=== PATIENT | male | born 1975 | race Caucasian/White ===

== ENCOUNTER 2017-02-18 22:03 | Inpatient (IN) | payer OTHER ==
[~2017-02-18] VITALS: Ht 185.4 cm; Wt 75.8 kg
[2017-02-18 22:32] VITALS: BP 139/91; PULSE 96; TEMP 97.8
[2017-02-19] VITALS (11 sets, daily range): BP systolic 107–148; BP diastolic 55–90; PULSE 78–109; TEMP 98–99
[2017-02-19 04:11] LABS: PH 6 (5-8); SQUAMOUS EPITHELIAL 0-2 /hpf; URINE APPEARANCE Clear; URINE BACTERIA None Seen /hpf; URINE BILIRUBIN Negative (NEGATIVE); URINE BLOOD 1+ (NEGATIVE); URINE COLOR Amber; URINE GLUCOSE Negative (NEGATIVE); URINE KETONE 1+ (NEGATIVE); URINE RBC 0-2 /hpf; URINE UROBILINOGEN >=4.0 mg/dL (NEGATIVE); URINE WBC 0-2 /hpf
[2017-02-19 06:29] LABS: MEAN CORPUSCULAR HGB CONC 37 g/dl (33.0-37.0)
[2017-02-19 06:40] LABS: CALCIUM 7.1 mg/dL (8.4-10.2); CREATININE, serum 0.64 mg/dL (0.66-1.25); MAGNESIUM 1.2 mg/dL (1.6-2.3); PHOSPHOROUS 3.3 mg/dL (2.5-4.5); POTASSIUM 3.2 mmol/L (3.4-5.0)
[2017-02-19 07:07] LABS: THYROID STIMULATING HORMONE 0.737 uIU/mL (0.465-4.680)
[2017-02-19 08:45] LABS: ADJUSTED CALCIUM 7.7 mg/dL (8.4-10.2); ALBUMIN 3.4 gm/dL (3.5-5.0); CALCIUM 7.2 mg/dL (8.4-10.2); CREATININE, serum 0.65 mg/dL (0.66-1.25); POTASSIUM 3.3 mmol/L (3.4-5.0); TOTAL PROTEIN 6.1 gm/dL (6.4-8.2)
[2017-02-19 09:12] LABS: INR 1.1 (0.8-3.0); PROTHROMBIN TIME 12.5 SECONDS (9.7-12.8)
[2017-02-19 09:20] LABS: MEAN CELL VOLUME 100 fl (80.0-100.0); MEAN CORPUSCULAR HEMOGLOBIN 37 pg (27.0-31.0); MEAN PLATELET VOLUME 9.5 fl (7.4-10.4); RED BLOOD COUNT 3.28 M/mm3 (4.20-5.60); REDCELL DISTRIBUTION WIDTH-CV 14.2 % (11.5-14.5); WHITE BLOOD COUNT 3.8 K/mm3 (4.8-10.8)
[2017-02-19 09:21] LABS: HEMATOCRIT 32.8 % (42.0-52.0)
[2017-02-19 09:22] LABS: PLATELET COUNT 28 K/mm3 (130-400)
[2017-02-20] VITALS (12 sets, daily range): BP systolic 117–139; BP diastolic 79–94; PULSE 95–118; TEMP 97.9–98.6
[2017-02-20 07:40] LABS: BASO % 0.6 % (0.0-2.0); EOS % 0.6 % (0-4.0); GRAN # 3.1 (1.4-6.5); GRAN % 67.3 % (42.2-75.2); HEMOGLOBIN 12.3 g/dl (13.5-18.0); LYMPH # 0.8 (1.2-3.4); MEAN CELL VOLUME 98 fl (80.0-100.0); MEAN CORPUSCULAR HEMOGLOBIN 37 pg (27.0-31.0); MEAN CORPUSCULAR HGB CONC 37 g/dl (33.0-37.0); MEAN PLATELET VOLUME 9.4 fl (7.4-10.4); MONO # 0.6 (0.1-0.6); MONO % 12.6 % (1.7-9.3); RED BLOOD COUNT 3.37 M/mm3 (4.20-5.60); WHITE BLOOD COUNT 4.7 K/mm3 (4.8-10.8)
[2017-02-20 07:55] LABS: HEMATOCRIT 33.1 % (42.0-52.0)
[2017-02-20 07:59] LABS: PLATELET COUNT 36 K/mm3 (130-400)
[2017-02-20 08:11] LABS: ALBUMIN 3.9 gm/dL (3.5-5.0); BILIRUBIN,TOTAL 6.5 mg/dL (0.0-1.0); TOTAL PROTEIN 6.6 gm/dL (6.4-8.2)
[2017-02-20 12:27] LABS: CALCIUM 7.5 mg/dL (8.4-10.2); CREATININE, serum 0.6 mg/dL (0.66-1.25); MAGNESIUM 1.9 mg/dL (1.6-2.3); POTASSIUM 3.7 mmol/L (3.4-5.0)
[2017-02-21] VITALS (256 sets, daily range): BP systolic 110–155; BP diastolic 60–106; PULSE 81–135; TEMP 97.6–99.1; O2SAT 86–100
[2017-02-21 07:17] LABS: BASO % 0.8 % (0.0-2.0); EOS % 0.5 % (0-4.0); GRAN # 2.4 (1.4-6.5); LYMPH # 0.8 (1.2-3.4); LYMPH % 19.9 % (20.0-51.0); MEAN CELL VOLUME 99 fl (80.0-100.0); MEAN CORPUSCULAR HGB CONC 37 g/dl (33.0-37.0); MEAN PLATELET VOLUME 10.6 fl (7.4-10.4); MONO # 0.5 (0.1-0.6); MONO % 13.5 % (1.7-9.3); RED BLOOD COUNT 3.14 M/mm3 (4.20-5.60); REDCELL DISTRIBUTION WIDTH-CV 14.1 % (11.5-14.5); WHITE BLOOD COUNT 3.8 K/mm3 (4.8-10.8)
[2017-02-21 07:19] LABS: HEMATOCRIT 31.2 % (42.0-52.0); HEMOGLOBIN 11.5 g/dl (13.5-18.0); MEAN CORPUSCULAR HEMOGLOBIN 37 pg (27.0-31.0)
[2017-02-21 07:37] LABS: ADJUSTED CALCIUM 8.2 mg/dL (8.4-10.2); ALBUMIN 3.7 gm/dL (3.5-5.0); BILIRUBIN,TOTAL 6.5 mg/dL (0.0-1.0); CREATININE, serum 0.64 mg/dL (0.66-1.25); TOTAL PROTEIN 6.3 gm/dL (6.4-8.2)
[2017-02-21 08:36] LABS: MAGNESIUM 1.6 mg/dL (1.6-2.3)
[2017-02-21 10:27] LABS: PLATELET COUNT 39 K/mm3 (130-400)
[2017-02-21 18:34] LABS: ALPHA 1 ANTITRYPSIN TOTAL 138 mg/dL (())
[2017-02-22] VITALS (185 sets, daily range): BP systolic 120–134; BP diastolic 85–97; PULSE 70–109; TEMP 97.7–98.6; O2SAT 71–100
[2017-02-22 06:01] LABS: HEMOGLOBIN 12.7 g/dl (13.5-18.0); MEAN CELL VOLUME 101 fl (80.0-100.0); MEAN CORPUSCULAR HEMOGLOBIN 36 pg (27.0-31.0); MEAN CORPUSCULAR HGB CONC 36 g/dl (33.0-37.0); MEAN PLATELET VOLUME 9.2 fl (7.4-10.4); RED BLOOD COUNT 3.49 M/mm3 (4.20-5.60); REDCELL DISTRIBUTION WIDTH-CV 14.4 % (11.5-14.5); WHITE BLOOD COUNT 4.5 K/mm3 (4.8-10.8)
[2017-02-22 06:05] LABS: PROTHROMBIN TIME 11.6 SECONDS (9.7-12.8)
[2017-02-22 06:15] LABS: ADJUSTED CALCIUM 8.6 mg/dL (8.4-10.2); ALBUMIN 3.9 gm/dL (3.5-5.0); BILIRUBIN,TOTAL 5.7 mg/dL (0.0-1.0); CALCIUM 8.5 mg/dL (8.4-10.2); CREATININE, serum 0.61 mg/dL (0.66-1.25); MAGNESIUM 2.1 mg/dL (1.6-2.3); PHOSPHOROUS 0.9 mg/dL (2.5-4.5); POTASSIUM 4.4 mmol/L (3.4-5.0); TOTAL PROTEIN 6.8 gm/dL (6.4-8.2)
[2017-02-22 06:19] LABS: HEMATOCRIT 35.2 % (42.0-52.0); PLATELET COUNT 47 K/mm3 (130-400)
[2017-02-23] VITALS (312 sets, daily range): BP systolic 123–134; BP diastolic 94–101; PULSE 91–97; TEMP 98.1; O2SAT 41–100
[2017-02-23 05:55] LABS: EOS # 0.1 (0.0-0.7); EOS % 1.7 % (0-4.0); GRAN # 2.4 (1.4-6.5); GRAN % 57.8 % (42.2-75.2); HEMOGLOBIN 12.8 g/dl (13.5-18.0); LYMPH # 1.1 (1.2-3.4); LYMPH % 25.7 % (20.0-51.0); MEAN CELL VOLUME 101 fl (80.0-100.0); MEAN CORPUSCULAR HEMOGLOBIN 37 pg (27.0-31.0); MEAN CORPUSCULAR HGB CONC 36 g/dl (33.0-37.0); MEAN PLATELET VOLUME 10.1 fl (7.4-10.4); MONO # 0.5 (0.1-0.6); MONO % 12.4 % (1.7-9.3); PLATELET COUNT 62 K/mm3 (130-400); REDCELL DISTRIBUTION WIDTH-CV 14.6 % (11.5-14.5); WHITE BLOOD COUNT 4.2 K/mm3 (4.8-10.8)
[2017-02-23 06:16] LABS: HEMATOCRIT 35.4 % (42.0-52.0)
[2017-02-23 06:18] LABS: ALBUMIN 3.6 gm/dL (3.5-5.0); BILIRUBIN,DIRECT 2.4 mg/dL (0.0-0.4); BILIRUBIN,TOTAL 4.4 mg/dL (0.0-1.0); CALCIUM 8.8 mg/dL (8.4-10.2); CREATININE, serum 0.66 mg/dL (0.66-1.25); TOTAL PROTEIN 6.7 gm/dL (6.4-8.2)
[2017-02-23] MEDS ORDERED: PROTONIX 40MG T40 MG PO (11:57)
[2017-02-23] MEDS ORDERED: THIAMINE 1100 MG/TAB PO (11:57)
[2017-02-23] MEDS ORDERED: FOLIC ACID 11 MG/TA1 PO (11:57)
== END 2017-02-23 13:00 | disposition home or self-care (01) | DRG 377 ==
LOC: MEDICAL 22:03 → ICU 02-21 10:07 → IMCU 02-22 19:09
PROVIDERS: Family Medicine; Internal Medicine; Internal Medicine Gastroenterology; Physician Assistant
PROC: 0DB68ZX Excision of Stomach, Via Natural or Artificial Opening Endoscopic, Diagnostic (ICD-10-PCS; principal; 2017-02-19 12:30)
DX: K29.21 Alcoholic gastritis with bleeding (principal); K85.20 Alcohol induced acute pancreatitis without necrosis or infection; F10.231 Alcohol dependence with withdrawal delirium; F10.24 Alcohol dependence with alcohol-induced mood disorder; E44.0 Moderate protein-calorie malnutrition; K25.4 Chronic or unspecified gastric ulcer with hemorrhage; F17.220 Nicotine dependence, chewing tobacco, uncomplicated; F41.8 Other specified anxiety disorders; D69.59 Other secondary thrombocytopenia; K70.10 Alcoholic hepatitis without ascites; E87.6 Hypokalemia; E83.42 Hypomagnesemia
CPT/HCPCS: 90791-AI; 99223-AI; 99232-AI; 99233-AI; 99238; A4315; J1652; J2060; J2704; J3475; J3480; J7030; Q9967

== ENCOUNTER → 2017-02-18 | Outpatient (REF) ==
[~2017-02-18] MED LIST: FOLIC ACID 11 MG/TA1 PO; PROTONIX 40MG T40 MG PO; THIAMINE 1100 MG/TAB PO
== END ==
LOC: ZLAB.WCH 21:13
DX: Z01.89 Encounter for other specified special examinations (principal)

== ENCOUNTER → 2017-03-01 | Outpatient (CLI) | payer OTHER ==
[2017-03-01 13:44] LABS: HEMATOCRIT 33.9 % (42.0-52.0); HEMOGLOBIN 12.1 g/dl (13.5-18.0); MEAN CELL VOLUME 102 fl (80.0-100.0); MEAN CORPUSCULAR HEMOGLOBIN 37 pg (27.0-31.0); MEAN CORPUSCULAR HGB CONC 36 g/dl (33.0-37.0); MEAN PLATELET VOLUME 10.6 fl (7.4-10.4); PLATELET COUNT 193 K/mm3 (130-400); RED BLOOD COUNT 3.31 M/mm3 (4.20-5.60); REDCELL DISTRIBUTION WIDTH-CV 13.6 % (11.5-14.5); WHITE BLOOD COUNT 5.3 K/mm3 (4.8-10.8)
[2017-03-01 14:08] LABS: ADJUSTED CALCIUM 9.6 mg/dL (8.4-10.2); ALBUMIN 4.1 gm/dL (3.5-5.0); BILIRUBIN,TOTAL 3.3 mg/dL (0.0-1.0); CALCIUM 9.7 mg/dL (8.4-10.2); CREATININE, serum 0.78 mg/dL (0.66-1.25); POTASSIUM 3.5 mmol/L (3.4-5.0)
== END ==
LOC: COL.LAB 13:15
PROVIDERS: Family Medicine
DX: D64.9 Anemia, unspecified (principal); R74.8 Abnormal levels of other serum enzymes

== ENCOUNTER 2017-03-30 01:26 | Emergency (ER) | payer OTHER ==
[~2017-03-30] VITALS: Ht 185.4 cm; Wt 77.3 kg
[2017-03-30 01:28] VITALS: TEMP 97.2
[2017-03-30 01:58] LABS: BASO % 0.8 % (0.0-2.0); EOS % 0.5 % (0-4.0); GRAN # 1.8 (1.4-6.5); GRAN % 46.9 % (42.2-75.2); HEMATOCRIT 40.7 % (42.0-52.0); HEMOGLOBIN 14.6 g/dl (13.5-18.0); LYMPH # 1.6 (1.2-3.4); LYMPH % 41.9 % (20.0-51.0); MEAN CELL VOLUME 99 fl (80.0-100.0); MEAN CORPUSCULAR HEMOGLOBIN 35 pg (27.0-31.0); MEAN CORPUSCULAR HGB CONC 36 g/dl (33.0-37.0); MEAN PLATELET VOLUME 8.4 fl (7.4-10.4); MONO # 0.4 (0.1-0.6); MONO % 9.6 % (1.7-9.3); PLATELET COUNT 53 K/mm3 (130-400); RED BLOOD COUNT 4.13 M/mm3 (4.20-5.60); REDCELL DISTRIBUTION WIDTH-CV 13.3 % (11.5-14.5); WHITE BLOOD COUNT 3.9 K/mm3 (4.8-10.8)
[2017-03-30 02:09] LABS: ADJUSTED CALCIUM 8.4 mg/dL (8.4-10.2); ALBUMIN 4.2 gm/dL (3.5-5.0); BILIRUBIN,TOTAL 1.5 mg/dL (0.0-1.0); CALCIUM 8.6 mg/dL (8.4-10.2); CREATININE, serum 0.66 mg/dL (0.66-1.25); POTASSIUM 3.6 mmol/L (3.4-5.0); TOTAL PROTEIN 7.4 gm/dL (6.4-8.2)
[2017-03-30 02:23] LABS: PH 5 (5-8); SQUAMOUS EPITHELIAL None Seen /hpf; URINE APPEARANCE Clear; URINE BACTERIA None Seen /hpf; URINE BILIRUBIN Negative (NEGATIVE); URINE BLOOD Negative (NEGATIVE); URINE COLOR Straw; URINE GLUCOSE Negative (NEGATIVE); URINE KETONE Negative (NEGATIVE); URINE RBC None Seen /hpf; URINE UROBILINOGEN Negative (NEGATIVE); URINE WBC None Seen /hpf
[2017-03-30 02:28] LABS: AMPHETAMINE URINE NEGATIVE; BARBITURATES URINE NEGATIVE; BENZODIAZEPINES URINE POSITIVE; BUPRENORPHINE URINE NEGATIVE; METHADONE URINE NEGATIVE; OPIATES URINE NEGATIVE; OXYCODONE URINE NEGATIVE; PHENCYCLIDINE URINE NEGATIVE; PROPOXYPHENE URINE NEGATIVE; THC CANNABINOIDS URINE NEGATIVE
[2017-03-30 06:55] VITALS: BP 136/97; PULSE 104
== END 2017-03-30 06:45 | disposition home or self-care (01) ==
LOC: COL.ER 01:26
PROVIDERS: Nurse Practitioner
DX: F10.10 Alcohol abuse, uncomplicated (principal); F17.210 Nicotine dependence, cigarettes, uncomplicated; F17.220 Nicotine dependence, chewing tobacco, uncomplicated; Y90.8 Blood alcohol level of 240 mg/100 ml or more; Z98.890 Other specified postprocedural states
CPT/HCPCS: J2405; J7030

== ENCOUNTER 2017-10-25 10:58 | Emergency (ER) | payer SELFPAY ==
[~2017-10-25] VITALS: Ht 185.4 cm; Wt 70.0 kg
[2017-10-25 11:13] VITALS: TEMP 98.6
[2017-10-25 11:47] LABS: MEAN CELL VOLUME 99 fl (80.0-100.0); MEAN CORPUSCULAR HGB CONC 36 g/dl (33.0-37.0); MEAN PLATELET VOLUME 11.2 fl (7.4-10.4); PLATELET COUNT 52 K/mm3 (130-400); RED BLOOD COUNT 3.09 M/mm3 (4.20-5.60); REDCELL DISTRIBUTION WIDTH-CV 17.6 % (11.5-14.5)
[2017-10-25 11:48] LABS: HEMATOCRIT 30.7 % (42.0-52.0); HEMOGLOBIN 10.9 g/dl (13.5-18.0); INR 1.5 (0.8-3.0); MEAN CORPUSCULAR HEMOGLOBIN 35 pg (27.0-31.0); PROTHROMBIN TIME 17.7 SECONDS (9.7-12.8)
[2017-10-25 12:03] LABS: ALANINE AMINOTRANSFERASE 121 U/L (21-72); ALKALINE PHOSPHATASE 290 U/L (50-136); ANION GAP 22 mmol/L (7-16); AST,SGOT 612 U/L (15-37); BILIRUBIN,TOTAL 20.7 mg/dL (0.0-1.0); BLOOD UREA NITROGEN 5 mg/dL (9-20); CALCIUM 8.9 mg/dL (8.4-10.2); CARBON DIOXIDE 20 mmol/L (22-30); CREATININE, serum 0.67 mg/dL (0.66-1.25); GLUCOSE 145 mg/dL (74-106); SODIUM 126 mmol/L (137-145); TOTAL PROTEIN 7.7 gm/dL (6.4-8.2)
[2017-10-25 12:05] LABS: ALCOHOL(ethanol),MEDICAL < 10 mg/dL; CHLORIDE 84 mmol/L (98-107); POTASSIUM 2.7 mmol/L (3.4-5.0)
[2017-10-25 12:29] LABS: BAND 19 % (0-10); LYMPHOCYTE 9 % (20.0-51.0); NEUTROPHILS 67 % (42.0-75.2)
[2017-10-25 12:31] LABS: PLATELET ESTIMATE DECREASED (NORMAL)
[2017-10-25] MEDS ORDERED: XIFAXAN550 MG PO (12:50)
[2017-10-25] MEDS ORDERED: ENULOSE10 GM/15 M PO (12:51)
[2017-10-25] MEDS ORDERED: ATIVAN 0.50.5 MG/TAB PO (13:00)
[2017-10-25 13:10] VITALS: BP 128/87; PULSE 92
== END 2017-10-25 13:12 | disposition home or self-care (01) ==
LOC: COL.ER 10:58
PROVIDERS: Family Medicine
DX: K72.90 Hepatic failure, unspecified without coma (principal)
CPT/HCPCS: J3411; J7030